=== PATIENT | male | born 1965 | race Caucasian/White ===

== ENCOUNTER 2020-05-19 14:16 | Emergency (ER) | payer MEDICAID, SELFPAY ==
[2020-05-19 14:16] VITALS: BP 126/83; PULSE 80; RESP 16; TEMP 36.8; O2SAT 98; BMI 29.5
--- NOTE | 2020-05-19 14:22 | XR_ITS ---
PROCEDURE: XR FOREARM LT 2V Referring Doctor: Hoang Bullock Patient Age:55Y CLINICAL INDICATION: fall Syncopal episode with fall. Left arm injury. COMPARISON: No exams were available for comparison TECHNIQUE: 3 View AP, Oblique, Lateral FINDINGS: Left forearm AP and lateral view. No fracture or dislocation. No lytic or blastic change. There is normal mineralization. The ulnar and radius are intact. Soft tissues of with no significant findings but this forearm study includes AP and lateral view of the elbow of, grossly unremarkable no fracture nor effusion. The limited views of the radiocarpal joint appear intact although there may be slight ulnar minus variant at the wrist. IMPRESSION: No acute findings. Left forearm intact no fracture Dictated by: Cory Sotelo MD 05/19/2020 16:05 Cory Sotelo MD in [facility] 05/19/2020 16:05
--- NOTE | 2020-05-19 14:22 | XR_ITS ---
PROCEDURE: XR HUMERUS LT Referring Doctor: Hoang Bullock Patient Age:55Y CLINICAL INDICATION: fall Left humerus two view AP lateral. COMPARISON: No exams were available for comparison TECHNIQUE: 3 View AP, Oblique, Lateral FINDINGS: Left humerus intact with no fracture or dislocation. No lytic or blastic change. There is normal mineralization. . no radiopaque foreign bodies but the views the left shoulder included on this study appear intact but AP view of left elbow unremarkable as well . IMPRESSION: No acute findings.. Negative left humerus no fracture Dictated by: Cory Sotelo MD 05/19/2020 16:03 Cory Sotelo MD in [facility] 05/19/2020 16:03
--- NOTE | 2020-05-19 14:22 | XR_ITS ---
PROCEDURE: XR SHOULDER LT MIN 2V Referring Doctor: Hoang Bullock Patient Age:55Y CLINICAL INDICATION: fall left injury fell blacked out. Syncope. COMPARISON: . left humerus study from today otherwise no previous FINDINGS: Left shoulder3 view: AP and external rotation view along with Y-view but no fracture nor dislocation. The humeral head and neck intact. Glenohumeral joint intact. AC joint intact. Scapula unremarkable. Bones are fairly well mineralized. Left lung apex clear with uppermost left ribs intact on these views but IMPRESSION: No acute findings.. Negative left shoulder. Dictated by: Cory Sotelo MD 05/19/2020 16:06 Cory Sotelo MD in [facility] 05/19/2020 16:06
--- NOTE | 2020-05-19 14:24 | XR_ITS ---
PROCEDURE: XR PELVIS 1-2V Referring Doctor: Hoang Bullock Patient Age:55Y CLINICAL INDICATION: fall Syncopal episode pelvic pain COMPARISON: No exams were available for comparison TECHNIQUE: XR Pelvis AP View FINDINGS: AP pelvis No fracture or dislocation is evident. . iliac bone, pubis, superior and and inferior ramus intact bilaterally.. Left hip intact unremarkable Right hip but of mild degenerative changes at the right hip with some mild additional sclerosis at these rim and roof of right acetabulum. Hip joint space however is fairly well maintained bilaterally. The right femoral head and neck appear intact. Degenerative disc changes L4/5 IMPRESSION: Osseous pelvis intact with no fracture or dislocation. Hip joint spaces well maintained but note the mild degenerative changes right hip Dictated by: Cory Sotelo MD 05/19/2020 16:00 Cory Sotelo MD in [facility] 05/19/2020 16:00
[2020-05-19 14:29] VITALS: BP 131/80; PULSE 80; RESP 20; O2SAT 97
--- NOTE | 2020-05-19 15:09 | PC.NURSE ---
pt returned from rad
[2020-05-19 15:44] VITALS: BP 130/78; PULSE 80; RESP 16; O2SAT 98
--- NOTE | 2020-05-19 16:39 | HMH.EDGENADL ---
ED Disposition Clinical Impression: Fall Qualifiers: Encounter type: initial encounter Qualified Code(s): W19.XXXA - Unspecified fall, initial encounter Left shoulder strain Qualifiers: Encounter type: initial encounter Qualified Code(s): S46.912A - Strain of unspecified muscle, fascia and tendon at shoulder and upper arm level, left arm, initial encounter Disposition: Home, Self-Care Condition on Discharge: Good Instructions: How to Prevent Falls Additional Instructions: Follow-up with Dr. Prieto for any concerns Referrals: Mohamud Prieto MD [Primary Care Provider] - - Critical Care Critical Care Time: No Attestation: On 05/19/20, the high probability of a clinically significant, sudden or life threatening deterioration of the following system(s) required my full and direct attention, intervention and personal management. The time I documented below is in addition to time spent performing reported procedures but includes the following listed in this critical care notation. Medical Decision Making - Yaya Inquiry Pt receiving controlled substance: No Vital Signs: 05/19/20 14:16 05/19/20 14:29 05/19/20 15:44 Temperature 98.2 F Temperature Source Temporal Artery Scan Pulse Rate [Right] 80 80 80 Respiratory Rate 16 20 16 Blood Pressure [Right Arm] 126/83 131/80 130/78 Blood Pressure Mean [Right Arm] 97 97 95 Blood Pressure Source [Right Arm] Automatic Cuff Automatic Cuff Automatic Cuff Blood Pressure Position [Right Arm] Sitting Sitting Sitting 02 Sat by Pulse Oximetry 98 97 98 Oxygen Delivery Method Room Air Room Air - Radiology Data #1 Image(s): Shoulder, Humerus, Forearm, Pelvis Image Reviewed: Yes I have reviewed radiologist's interpretation PROCEDURE: XR FOREARM LT 2V Referring Doctor: Hoang Bullock Patient Age:55Y CLINICAL INDICATION: fall Syncopal episode with fall. Left arm injury. COMPARISON: No exams were available for comparison TECHNIQUE: 3 View AP, Oblique, Lateral FINDINGS: Left forearm AP and lateral view. No fracture or dislocation. No lytic or blastic change. There is normal mineralization. The ulnar and radius are intact. Soft tissues of with no significant findings but this forearm study includes AP and lateral view of the elbow of, grossly unremarkable no fracture nor effusion. The limited views of the radiocarpal joint appear intact although there may be slight ulnar minus variant at the wrist. IMPRESSION: No acute findings. Left forearm intact no fracture Dictated by: Cory Sotelo MD 05/19/2020 16:05 Cory Sotelo MD in [facility] 05/19/2020 16:05 PROCEDURE: XR HUMERUS LT Referring Doctor: Hoang Bullock Patient Age:55Y CLINICAL INDICATION: fall Left humerus two view AP lateral. COMPARISON: No exams were available for comparison TECHNIQUE: 3 View AP, Oblique, Lateral FINDINGS: Left humerus intact with no fracture or dislocation. No lytic or blastic change. There is normal mineralization. . no radiopaque foreign bodies but the views the left shoulder included on this study appear intact but AP view of left elbow unremarkable as well . IMPRESSION: No acute findings.. Negative left humerus no fracture Dictated by: Cory Sotelo MD 05/19/2020 16:03 Cory Sotelo MD in [facility] 05/19/2020 16:03 PROCEDURE: XR SHOULDER LT MIN 2V Referring Doctor: Ara Hoang Patient Age:55Y CLINICAL INDICATION: fall left injury fell blacked out. Syncope. COMPARISON: . left humerus study from today otherwise no previous FINDINGS: Left shoulder3 view: AP and external rotation view along with Y-view but no fracture nor dislocation. The humeral head and neck intact. Glenohumeral joint intact. AC joint intact. Scapula unremarkable. Bones are fairly well mineralized. Left lung apex clear with uppermost left ribs intact on these views but IMPRESSION: No acu
--- NOTE | 2020-05-19 16:59 | PC.NURSE ---
called [facility] and advised them pt was ready for d/c
[2020-05-19 17:25] VITALS: BP 132/78; PULSE 87; RESP 16; TEMP 36.6; O2SAT 98
== END 2020-05-19 17:28 | disposition home or self-care (01) ==
PROVIDERS: Emergency Provider Emergency Medicine; PCP Emergency Medicine
DX: S46.912A Strain of unspecified muscle, fascia and tendon at shoulder and upper arm level, left arm, initial encounter (principal); W01.0XXA Fall on same level from slipping, tripping and stumbling without subsequent striking against object, initial encounter; Y92.199 Unspecified place in other specified residential institution as the place of occurrence of the external cause
CPT/HCPCS: 72170; 73030; 73060; 73090; 99282

== ENCOUNTER 2020-05-28 18:41 | Emergency (ER) | payer MEDICAID, SELFPAY ==
[2020-05-28 18:43] VITALS: BP 136/94; PULSE 87; RESP 16; TEMP 36.9; O2SAT 99; BMI 34.7
--- NOTE | 2020-05-28 18:53 | HMH.EDGENADL ---
ED Disposition Clinical Impression: Constipation Disposition: Xfer [facility] Condition on Discharge: Good Prescriptions: Docusate Sodium [Colace] 100 mg PO BID 10 Days #20 cap Transmission Status: Pending to [facility] polyethylene glycoL 3350 [Miralax 17gm Packet] 17 gm PO DAILYP PRN 10 Days #10 packet PRN Reason: Constipation Transmission Status: Pending to [facility] - Critical Care Critical Care Time: No Attestation: On , the high probability of a clinically significant, sudden or life threatening deterioration of the following system(s) required my full and direct attention, intervention and personal management. The time I documented below is in addition to time spent performing reported procedures but includes the following listed in this critical care notation. Medical Decision Making - Medical Records Medical records reviewed: Yes: I reviewed the patient's medical records. - Yaya Inquiry Pt receiving controlled substance: No Orders (Tests/Meds): ED MEDICATIONS Discontinued Medications Generic Name Dose Route Start Last Admin Trade Name Freq PRN Reason Stop Dose Admin Magnesium Citrate 1 bot 05/28/20 18:53 Magnesium Citrate 10oz Bottle PO 05/28/20 18:54 ONCE ONE Medical Decision Narrative: 55-year-old male with constipation. He has no acute abdomen on exam or concern for small bowel obstruction. No tenderness on my exam. No concern for perforation or obstruction. Plan to give magnesium citrate here and discharged home with Colace and MiraLAX as he has not been taking anything for constipation. He is agreeable to this plan. Plan to discharge back to [facility] with return precautions General Adult HPI - General Stated complaint: constipation Time Seen by Provider: 05/28/20 18:50 Source of Information: Patient - History of Present Illness HPI narrative: 55-year-old male presents with constipation. He is a patient from [facility]. He says that for 3 days he has had decreased bowel movements however he has not tried anything to treat constipation. He denies abdominal pain vomiting and he is passing gas. He has no fever no chills no chest pain no shortness of air. He has history of intermittent constipation. Onset (ago): day(s) (3) Radiation: non-radiation Severity: mild Consistency: intermittent - Related Data Previous Rx's Medication Instructions Recorded clonazepam 0.5 mg tablet 0.5 mg PO TID PRN #90 tab 05/07/20 Docusate Sodium [Colace] 100 mg PO BID 10 Days #20 cap 05/28/20 polyethylene glycoL 3350 [Miralax 17 gm PO DAILYP PRN 10 Days #10 05/28/20 17gm Packet] packet Allergies Allergy/AdvReac Type Severity Reaction Status Date / Time Unable to Assess Allergy Unverified 05/07/20 16:20 [facility] History - Hepatitis A Screen Attestation statement:: This patient has been screened for Hepatitis A risk factors. ROS Obtained: Yes All systems reviewed & no additional complaints - Constitutional Constitutional: Denies body ache, Denies chills, Denies fever(s) - Eyes Eyes: Denies blurry vision (Was a 1 day) - ENT Ears, Nose, Mouth, and Throat: Denies dizziness - Cardiovascular Cardiovascular: Denies chest pain - Respiratory Respiratory: Denies shortness of breath - Gastrointestinal Gastrointestingal: Reports: change in bowel habits. Denies: abdominal pain, vomiting - Genitourinary Male Genitourinary: Denies flank pain - Musculoskeletal Musculoskeletal: Denies joint pain - Integumentary/Breasts Skin/Breast: Denies rash - Neurologic Neurologic: Denies abnormal gait, Denies dizziness, Denies syncope, Denies tingling Physical Exam - General General appearance: alert, in no apparent distress - Head Head exam: atraumatic - Eye Eye exam: Present: normal appearance, PERRL - ENT ENT exam: Present: normal oropharynx - Neck Neck exam: Absent: meningismus - Chest Chest inspection: Present
[2020-05-28 19:08] VITALS: BP 143/85; PULSE 97; RESP 18; O2SAT 97
--- NOTE | 2020-05-28 19:18 | PC.NURSE ---
called Sd Lacey for ride for pt
[2020-05-28 19:32] VITALS: BP 134/89; PULSE 93; RESP 16; TEMP 36.8; O2SAT 96
== END 2020-05-28 19:37 ==
PROVIDERS: Emergency Provider Emergency Medicine; PCP Emergency Medicine
DX: K59.00 Constipation, unspecified (principal); R03.0 Elevated blood-pressure reading, without diagnosis of hypertension; Z79.899 Other long term (current) drug therapy
CPT/HCPCS: 99282

== ENCOUNTER 2020-06-01 13:55 | Emergency (ER) | payer MEDICAID, SELFPAY ==
[2020-06-01 13:55] VITALS: BP 149/95; PULSE 97; RESP 18; TEMP 36.7; O2SAT 95; BMI 27.8
[2020-06-01 14:25] VITALS: BP 156/88; PULSE 93; RESP 12; O2SAT 95
--- NOTE | 2020-06-01 14:30 | HMH.EDABDPAI ---
ED Disposition Clinical Impression: Constipation Qualifiers: Constipation type: unspecified constipation type Qualified Code(s): K59.00 - Constipation, unspecified Disposition: Home, Self-Care Condition on Discharge: Good Instructions: DI for Acute Abdominal Pain Referrals: Mohamud Prieto MD [Primary Care Provider] - 3 days Time of Disposition: 16:15 - Critical Care Critical Care Time: No Attestation: On 06/01/20, the high probability of a clinically significant, sudden or life threatening deterioration of the following system(s) required my full and direct attention, intervention and personal management. The time I documented below is in addition to time spent performing reported procedures but includes the following listed in this critical care notation. Medical Decision Making - Medical Records Medical records reviewed: Yes: I reviewed the patient's medical records. - Yaya Inquiry Pt receiving controlled substance: No Vital Signs: 06/01/20 13:55 06/01/20 14:25 06/01/20 15:52 Temperature 98.0 F Temperature Source Oral Pulse Rate [Left Radial] 97 H 93 H 82 Respiratory Rate 18 12 Blood Pressure [Right Arm] 149/95 H 156/88 H 129/90 Blood Pressure Mean [Right Arm] 113 110 103 Blood Pressure Source [Right Arm] Automatic Cuff Automatic Cuff Automatic Cuff Blood Pressure Position [Right Arm] Sitting Sitting Sitting 02 Sat by Pulse Oximetry 95 95 94 L Oxygen Delivery Method Room Air Room Air Room Air 06/01/20 16:00 Temperature Temperature Source Pulse Rate [Left Radial] 82 Respiratory Rate Blood Pressure [Right Arm] 145/87 H Blood Pressure Mean [Right Arm] 106 Blood Pressure Source [Right Arm] Automatic Cuff Blood Pressure Position [Right Arm] Sitting 02 Sat by Pulse Oximetry 96 Oxygen Delivery Method Room Air - Lab Data Lab Results 06/01/20 14:20: WBC 5.8, RBC 5.41, Hgb 15.7, Hct 46.3, MCV 85.5, MCH 29.0, MCHC 34.0, RDW 14.7, Plt Count 236, MPV 8.4, Neut % (Auto) 63.2, Lymph % (Auto) 26.0, [place] % (Auto) 8.8, Eos % (Auto) 1.2, Baso % (Auto) 0.8, Neut # (Auto) 3.7, Lymph # (Auto) 1.5, [place] # (Auto) 0.5, Eos # (Auto) 0.1, Baso # (Auto) 0.0 06/01/20 14:20: Sodium 137, Potassium 3.6, Chloride 103, Carbon Dioxide 27, Anion Gap 10.6, BUN 10, Creatinine 0.70, Estimated Creat Clear 153, Estimated GFR 117, Est GFR ( Amer) 142, Glucose 134 H, Calcium 9.3, Total Bilirubin 0.7, AST 21, ALT 17, Alkaline Phosphatase 54, Total Protein 6.7, Albumin 3.9, Globulin 2.8, Albumin/Globulin Ratio 1.4 Result diagrams: 06/01/20 14:20 06/01/20 14:20 Orders (Tests/Meds): ED MEDICATIONS Discontinued Medications Generic Name Dose Route Start Last Admin Trade Name Freq PRN Reason Stop Dose Admin Magnesium Citrate 1 bot 06/01/20 15:53 06/01/20 15:56 Magnesium Citrate 10oz Bottle PO 06/01/20 15:54 1 bot ONCE ONE Administration Medical Decision Narrative: 55yo M evaluated for constipation. Patient is in no acute distress on initial evaluation. Given his failure of p.o. intervention last time, the patient will be treated with an enema. Patient was able to have a successful bowel movement and reports it feels as though some pressure has been released. He still feels as though he is backed up. Discussed with the patient he likely is still backed up and will take multiple bowel movements for him to feel better. Patient was given mag citrate p.o. after having a bowel movement. Patient is appropriate and stable for discharge home at this time. Further constipation care by nursing. Abdominal Pain HPI - General Chief Complaint: Abdominal Pain Stated Complaint: constipation Time Seen by Provider: 06/01/20 14:30 Mode of Arrival: EMS Limitations: No Limitations Description of Symptoms (Recalled from ER Triage Doc. by RN): pt states that he has only been pooping rabbit turds for a few days and his poop is rubbing against something and he can feel it moving down. States he is been unable t
[2020-06-01 14:34] LABS: Basophils % 0.8 % (0.1-2.0); Eosinophils # 0.1 K/mm3 (0.0-0.4); Eosinophils % 1.2 % (0.1-12.0); Hematocrit 46.3 % (42.0-52.0); Hemoglobin 15.7 g/dL (14.1-18.0); Lymphocytes # 1.5 K/mm3 (0.7-4.5); Mean Corpuscular Volume 85.5 fl (80-94); Mean Platelet Volume 8.4 fl (7.4-10.4); Monocytes # 0.5 K/mm3 (0.1-1.0); Monocytes % 8.8 % (1.7-9.3); Neutrophils # 3.7 K/mm3 (1.8-7.8); Neutrophils % 63.2 % (37.0-80.0); Platelet Count 236 K/mm3 (142-424); Red Blood Count 5.41 M/mm3 (4.60-6.20); Red Cell Distribution Width 14.7 % (11.5-17.5); White Blood Count 5.8 K/mm3 (4.8-10.8)
[2020-06-01 14:42] LABS: Chloride 103 mmol/L (98-107)
[2020-06-01 14:43] LABS: Potassium 3.6 mmoL/L (3.5-5.1); Sodium 137 mmol/L (136-145)
[2020-06-01 14:45] LABS: Alanine Aminotransferase 17 U/L (12-78); Alkaline Phosphatase 54 U/L (38-126); Aspartate Amino Transferase 21 U/L (17-59); Bilirubin,Total 0.7 mg/dl (0.2-1.3); Blood Urea Nitrogen 10 mg/dl (9-20); Creatinine Clearance Estimated 153 mL/min (50-200); Estimated Glomerular Filt Rate 117 ml/min (>60); GFR (African American) 142 ML/MIN (>60)
[2020-06-01 14:46] LABS: Albumin Level 3.9 g/dl (3.5-5.0); Albumin/Globulin Ratio 1.4 (1.1-1.8); Anion Gap 10.6 mEq/L (5-15); Calcium 9.3 mg/dl (8.4-10.2); Carbon Dioxide 27 mmol/L (22.0-30.0); Globulin 2.8 g/dL (1.3-3.2); Glucose 134 mg/dl (74-100); Total Protein,Serum 6.7 g/dl (6.3-8.2)
--- NOTE | 2020-06-01 14:55 | PC.NURSE ---
Soap suds enema given. Pt tolerated well at this time.
--- NOTE | 2020-06-01 15:25 | PC.NURSE ---
pt taking himself to the restroom at this time
--- NOTE | 2020-06-01 15:28 | PC.NURSE ---
pt returning to room
[2020-06-01 15:52] VITALS: BP 129/90; PULSE 82; O2SAT 94
[2020-06-01 16:00] VITALS: BP 145/87; PULSE 82; O2SAT 96
[2020-06-01 16:33] VITALS: BP 135/79; PULSE 82; RESP 16; TEMP 36.7; O2SAT 96
== END 2020-06-01 16:34 | disposition home or self-care (01) ==
PROVIDERS: Emergency Provider Family Medicine; PCP Emergency Medicine
DX: K59.00 Constipation, unspecified (principal); R42 Dizziness and giddiness
CPT/HCPCS: 80053; 85025; 99283